=== PATIENT | female | born 1985 | race Hispanic/Latino ===

== ENCOUNTER 2017-09-06 17:22 | Emergency (ER) | payer BC ==
[~2017-09-06] VITALS: Ht 152.4 cm; Wt 100.0 kg
[~2017-09-06 17:22] MED LIST: ACULAR LS0.4 % OD; AMOXICILLIN/CL875 MG OR; AMOXICILLIN875 MG OR; AMOXICILLIN875 MG PO; CHERATUSSIN PO; FIORICET PO; MEDDOSEPAK PO; NASONEX50 MCG/AC; NO; PRENATAL1 TAB PO; PROAIR HFA IN; ZOFRAN ODT4 MG SL
[2017-09-06] MEDS ORDERED: IBUPROFEN600 MG PO (19:21)
[2017-09-06 19:30] VITALS: BP 132/78
== END 2017-09-06 19:30 | disposition home or self-care (01) | DRG 556 ==
LOC: ED 17:22
DX: M25.531 Pain in right wrist (principal)

== ENCOUNTER 2021-09-12 11:35 | Emergency (ER) | payer OTHER, BC ==
[~2021-09-12] VITALS: Ht 152.4 cm; Wt 115.0 kg
[~2021-09-12 11:35] MED LIST changes: +IBUPROFEN600 MG PO
[2021-09-12 14:00] VITALS: BP 131/87
[2021-09-12] MEDS ORDERED: TRAMADOL HCL50 MG PO ×2 (14:11→14:19)
== END 2021-09-12 14:40 | disposition home or self-care (01) | DRG 605 ==
LOC: ED 11:35
DX: S90.111A Contusion of right great toe without damage to nail, initial encounter (principal); X50.0XXA Overexertion from strenuous movement or load, initial encounter; Y93.89 Activity, other specified